=== PATIENT | female | born 1975 | race Caucasian/White ===

== ENCOUNTER 2021-10-08 00:40 | Inpatient (IN) | payer OTHER, MEDICAID ==
[2021-10-08] MEDS ORDERED: HALOPERIDOL LACTATE 5 MG/ML 1 ML VIAL IM PRN (00:48)
[2021-10-08] MEDS ORDERED: IBUPROFEN 800 MG TAB PO PRN (00:48)
[2021-10-08] MEDS ORDERED: LORazepam 2 MG/ML INJ IM PRN (00:48)
[2021-10-08] MEDS ORDERED: MAGNESIUM HYDROXIDE 2,400 MG/10 ML CUP PO PRN (00:48)
[2021-10-08] MEDS ORDERED: haloperidoL 5 MG TAB PO PRN (00:48)
[2021-10-08] MEDS ORDERED: NICOTINE 14MG/24HR PATCH TRANSDERM SCH (09:00)
[2021-10-08] MEDS: PANTOPRAZOLE 40 MG TABLET PO SCH (13:10)
[2021-10-08] MEDS: NAPROXEN 250 MG TAB PO SCH ×2 (13:10→20:50)
[2021-10-08] MEDS: methocarbamoL 750 MG TAB PO SCH (13:34)
[2021-10-08] MEDS: ONDANSETRON ODT 4 MG TAB PO PRN (14:51)
[2021-10-08 14:58] VITALS: BMI 21.2
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
[2021-10-08] MEDS: lamoTRIgine 25 MG TAB PO SCH (17:27)
[2021-10-08] MEDS ORDERED: ACETAMINOPHEN TAB 325 MG TAB PO PRN (19:04)
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
[2021-10-08] MEDS: risperiDONE 1 MG TAB PO SCH (20:50)
[2021-10-08] MEDS: LORazepam 1 MG TAB PO PRN (21:24)
[2021-10-09 08:46] LABS: Basophils # (A) 0.1 k/uL (0-0.2); Basophils % (A) 2 %; Eosinophils # (A) 0.1 k/uL (0-0.7); Eosinophils % (A) 2 %; HCT 43.9 % (34.0-46.0); HGB 14.8 gm/dL (11.4-16.0); Lymphocytes # (A) 2.6 k/uL (1.0-4.8); Lymphocytes % (A) 38 %; MCH 30.1 pg (25.0-35.0); MCHC 33.7 g/dL (31.0-37.0); MCV 89.2 fL (80.0-100.0); Mean Platelet Volume 9.1; Monocytes # (A) 0.5 k/uL (0-1.0); Monocytes % (A) 7 %; Neutrophils # (A) 3.2 k/uL (1.3-7.7); Neutrophils % (A) 47 %; Platelet Count 308 k/uL (150-450); RBC 4.92 m/uL (3.80-5.40); RDW 12.5 % (11.5-15.5); WBC 6.8 k/uL (3.8-10.6)
[2021-10-09] MEDS: PANTOPRAZOLE 40 MG TABLET PO SCH (08:57)
[2021-10-09] MEDS: risperiDONE 1 MG TAB PO SCH ×2 (08:57→20:43)
[2021-10-09] MEDS: methocarbamoL 750 MG TAB PO SCH (08:57)
[2021-10-09] MEDS: NAPROXEN 250 MG TAB PO SCH ×2 (08:58→20:42)
[2021-10-09 08:59] LABS: Albumin 4.2 g/dL (3.5-5.0); Bilirubin, Delta 0.1 mg/dL (0.0-0.2); Bilirubin,Unconjugated 0.7 mg/dL (0.0-1.1); Calcium 9.6 mg/dL (8.4-10.2); Potassium 3.9 mmol/L (3.5-5.1); Total Bilirubin 0.8 mg/dL (0.2-1.3); Total Protein 7.3 g/dL (6.3-8.2)
[2021-10-09] MEDS: lamoTRIgine 25 MG TAB PO SCH (08:59)
[2021-10-09] MEDS ORDERED: NON FORMULARY DRUG (Omeprazole 20 MG Capsule.Dr) PO SCH (09:00)
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
[2021-10-09 16:49] LABS: HDL Cholesterol 43.7 mg/dL (40.00-60.00); Triglycerides 39.9 mg/dL (0.00-149.00)
[2021-10-09 17:11] LABS: Chol/HDL Ratio 4.97 Ratio
[2021-10-09] MEDS: ONDANSETRON ODT 4 MG TAB PO PRN (18:34)
[2021-10-09] MEDS: LORazepam 1 MG TAB PO PRN (23:11)
[2021-10-10] MEDS: MAG HYDROX/AL HYDROX/SIMETH 30 ML CUP PO PRN ×3 (00:27→17:38)
[2021-10-10] MEDS: NAPROXEN 250 MG TAB PO SCH ×2 (09:03→21:31)
[2021-10-10] MEDS: methocarbamoL 750 MG TAB PO SCH (09:03)
[2021-10-10] MEDS: lamoTRIgine 25 MG TAB PO SCH (09:03)
[2021-10-10] MEDS: PANTOPRAZOLE 40 MG TABLET PO SCH (09:03)
[2021-10-10] MEDS: risperiDONE 1 MG TAB PO SCH ×2 (09:03→21:31)
[2021-10-10] MEDS: ONDANSETRON ODT 4 MG TAB PO PRN (12:59)
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
[2021-10-10] MEDS: LORazepam 1 MG TAB PO PRN (22:57)
[2021-10-11 06:48] VITALS: RESP 16
[2021-10-11] MEDS: NAPROXEN 250 MG TAB PO SCH ×2 (08:38→20:51)
[2021-10-11] MEDS: PANTOPRAZOLE 40 MG TABLET PO SCH (08:38)
[2021-10-11] MEDS: lamoTRIgine 25 MG TAB PO SCH ×2 (08:41→20:52)
[2021-10-11] MEDS: risperiDONE 1 MG TAB PO SCH ×2 (08:41→20:51)
[2021-10-11] MEDS: methocarbamoL 750 MG TAB PO SCH (08:42)
[2021-10-11] MEDS: MAG HYDROX/AL HYDROX/SIMETH 30 ML CUP PO PRN (08:44)
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
[2021-10-11] MEDS: ONDANSETRON ODT 4 MG TAB PO PRN (14:45)
[2021-10-11] MEDS ORDERED: LORazepam 1 MG/0.5 ML VIAL IM PRN (18:41)
[2021-10-11] MEDS: hydrOXYzine pamoate 25 MG CAP PO SCH (20:51)
[2021-10-11] MEDS: LORazepam 1 MG TAB PO PRN (22:16)
[2021-10-12] MEDS: NAPROXEN 250 MG TAB PO SCH ×2 (08:27→20:56)
[2021-10-12] MEDS: PANTOPRAZOLE 40 MG TABLET PO SCH (08:27)
[2021-10-12] MEDS: methocarbamoL 750 MG TAB PO SCH (08:27)
[2021-10-12] MEDS: lamoTRIgine 25 MG TAB PO SCH (08:27)
[2021-10-12] MEDS: risperiDONE 1 MG TAB PO SCH ×2 (08:28→20:57)
[2021-10-12] MEDS: MAG HYDROX/AL HYDROX/SIMETH 30 ML CUP PO PRN ×2 (11:15→18:21)
[2021-10-12] MEDS ORDERED: TRIAMCINOLONE ACET 0.1% OINTMENT 15 GM TUBE TOPICAL PRN (11:33)
[2021-10-12] MEDS ORDERED: HYDROCORTISONE 2.5% RECTAL CREAM 30 GM TUBE RECTAL PRN (11:40)
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
[2021-10-12] MEDS: ONDANSETRON ODT 4 MG TAB PO PRN (18:21)
[2021-10-12] MEDS: hydrOXYzine pamoate 25 MG CAP PO SCH (20:56)
[2021-10-12] MEDS ORDERED: lamoTRIgine 25 MG TAB PO SCH (21:00)
[2021-10-12] MEDS: LORazepam 1 MG TAB PO PRN (23:18)
[2021-10-13 07:25] VITALS: BP 117/64; PULSE 81; TEMP 98.2
[2021-10-13] MEDS: MAG HYDROX/AL HYDROX/SIMETH 30 ML CUP PO PRN (08:09)
[2021-10-13] MEDS: PANTOPRAZOLE 40 MG TABLET PO SCH (08:42)
[2021-10-13] MEDS: NAPROXEN 250 MG TAB PO SCH (08:43)
[2021-10-13] MEDS: methocarbamoL 750 MG TAB PO SCH (08:43)
[2021-10-13] MEDS: risperiDONE 1 MG TAB PO SCH (08:44)
[2021-10-13] MEDS ORDERED: lamoTRIgine 25 MG TAB PO SCH (09:00)
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
== END 2021-10-13 13:55 | disposition home or self-care (01) | DRG 885 ==
LOC: 3MHU 11:25
PROVIDERS: ADMIT Psychiatry & Neurology Psychiatry; ATTEND Psychiatry & Neurology Psychiatry
DX: F31.2 Bipolar disorder, current episode manic severe with psychotic features (principal); F41.0 Panic disorder [episodic paroxysmal anxiety]; F43.10 Post-traumatic stress disorder, unspecified; F90.9 Attention-deficit hyperactivity disorder, unspecified type; G47.00 Insomnia, unspecified; G89.29 Other chronic pain; N93.8 Other specified abnormal uterine and vaginal bleeding; M70.71 Other bursitis of hip, right hip; M54.9 Dorsalgia, unspecified; Z79.899 Other long term (current) drug therapy; Z91.51 Personal history of suicidal behavior; Z28.310 Unvaccinated for COVID-19; Z28.21 Immunization not carried out because of patient refusal; Z63.5 Disruption of family by separation and divorce; Z79.3 Long term (current) use of hormonal contraceptives; Z71.89 Other specified counseling
CPT/HCPCS: 80053; 80061; 82248; 83036; 83721; 84443; 85025